=== PATIENT | female | born 1995 | race Two or more races ===

== ENCOUNTER 2024-02-24 18:19 | Emergency (ER) | payer OTHER ==
[~2024-02-24] VITALS: Ht 165.1 cm; Wt 74.8 kg
[2024-02-24 18:30] VITALS: BP 95/67; O2SAT 98
[2024-02-24] MEDS ORDERED: BENTYL10 MG/1 ML (18:30)
[2024-02-24] MEDS ORDERED: PROTONIX20 MG (18:30)
[2024-02-24] MEDS ORDERED: GAVISCON 80-141 EACH (18:30)
[2024-02-24] MEDS ORDERED: 0.9 % SODIUM CHLORIDE 250 ML IV ONE (20:15)
[2024-02-24] MEDS ORDERED: FAMOtidine 10 MG/ML (4ML VIAL) IV ONE (20:15)
[2024-02-24] MEDS ORDERED: ONDANSETRON HCL 2 MG/ML VIAL IV ONE (20:15)
[2024-02-24 20:37] LABS: HEMATOCRIT 35.5 % (36.0-45.00); HEMOGLOBIN 11.8 g/dL (12.0-15.00); MEAN CELL VOLUME 76.9 fL (80.00-100.00); MEAN CORPUSCULAR HEMOGLOBIN 25.5 pg (27.00-32.0); MEAN CORPUSCULAR HGB CONC 33.2 g/dl (32.0-36.0); PLATELET COUNT 484 K/uL (150-450); RED BLOOD COUNT 4.61 M/uL (4.00-6.00); RED CELL DISTRIBUTION WIDTH 15.4 % (11.5-14.5)
[2024-02-24 21:04] LABS: ALBUMIN 3.9 gm/dL (3.4-5.0); BILIRUBIN TOTAL 0.35 mg/dL (0.3-1.2); CALCIUM 9.6 mg/dL (8.5-10.1); CREATININE SERUM 0.61 mg/dL (0.55-1.02); GFR 117.65; GLOBULINA 4.7 G/DL (2.4-3.5); POTASSIUM 4.11 mEq/L (3.5-5.1); TOTAL PROTEIN 8.6 gm/dL (6.4-8.2)
[2024-02-24] MEDS ORDERED: PEPCID AC20 MG PO (21:42)
[2024-02-24] MEDS ORDERED: PROTONIX40 MG PO (21:42)
== END 2024-02-24 21:52 | disposition home or self-care (01) ==
LOC: ER 18:21
PROVIDERS: Preventive Medicine Public Health & General Preventive Medicine
DX: K29.70 Gastritis, unspecified, without bleeding (principal)